=== PATIENT | female | born 1945 | race Caucasian/White ===

== ENCOUNTER 2016-03-12 10:53 | Outpatient (CLI) | payer MEDICARE, BC ==
[2016-03-12 12:30] LABS: CHOLESTEROL 218 mg/dL (<200); HDL CHOLESTEROL 70 mg/dL (40-60); LDL 129 mg/dL (0-99); TRIGLYCERIDES 82 mg/dL (30-150)
== END 2016-03-12 23:59 ==
LOC: LAB 10:53
PROVIDERS: ATTEND Internal Medicine Interventional Cardiology
DX: E78.5 Hyperlipidemia, unspecified (principal)
CPT/HCPCS: 36415; 80061-TC